=== PATIENT | male | born 1950 | race Caucasian/White ===

== ENCOUNTER 2016-06-11 08:57 | Emergency (ER) | payer OTHER ==
--- NOTE | 2016-06-11 09:25 | UC ---
Respiratory Complaint HPI - HPI Summary HPI Summary: 2 WEEKS OF DIZZINESS, LACK OF APPETITE, FATIGUE, WEAKNESS. HAS ST, DRAINAGE AND CONGESTION. HAS NOT FELT WELL ENOUGH TO LEAVE THE HOUSE UNTIL NOW. FEELS SOB WITH EXERTION. HAS EATEN VERY LITTLE SINCE ONSET. - History of Current Complaint Chief Complaint: UCGeneralIllness Stated Complaint: FEVER,AND CHILLS Time Seen by Provider: 06/11/16 09:07 Hx Obtained From: Patient Onset/Duration: Gradual Onset, Lasting Weeks, Still Present Timing: Constant Severity Initially: Moderate Severity Currently: Moderate Pain Intensity: 0 Pain Scale Used: 0-10 Numeric Character: Cough: Nonproductive Aggravating Factors: Nothing Alleviating Factors: Nothing Associated Signs And Symptoms: Positive: Dyspnea, Dizziness - Allergies/Home Medications Allergies/Adverse Reactions: Allergies Allergy/AdvReac Type Severity Reaction Status Date / Time Bee Venom Allergy Severe Anaphylatic Verified 02/08/15 11:06 Shock Xray dye Allergy Severe Swelling Uncoded 02/08/15 11:06 Home Medications: Home Medications Pseudoephedrine-Guaifenesin [Mucinex D] 1 tab PO 06/11/16 [History] PMH/Surg Hx/FS Hx/Imm Hx Endocrine History Of: Reports: Dyslipidemia Denies: Diabetes, Thyroid Disease Cardiovascular History Of: Reports: Hypertension Denies: Cardiac Disorders Respiratory History Of: Reports: Asthma Denies: COPD GI/ History Of: Denies: Ulcer - Surgical History Surgical History: Yes Surgery Procedure, Year, and Place: 1971 - Right knee surgery. appendectomy - when a child. Lower left ankle, 3 pins - Family History Known Family History: Positive: Cardiac Disease, Hypertension - Social History Alcohol Use: Rare Substance Use Type: None Smoking Status (MU): Former Smoker Type: Cigarettes Have You Smoked in the Last Year: No When Did the Patient Quit Smoking/Using Tobacco: 1969 - Immunization History Most Recent Influenza Vaccination: 02/07/15 Review of Systems Constitutional: Fatigue, Other - DIZZY ENT: Sore Throat, Nasal Discharge Respiratory: Cough Cardiovascular: Other - TACHYCARDIA Gastrointestinal: Negative Neurological: Weakness All Other Systems Reviewed And Are Negative: Yes Physical Exam Triage Information Reviewed: Yes Appearance: Ill-Appearing - PT WORKING TO BREATHE, LOOKS DISTRESSED, PALE Vital Signs: Initial Vital Signs Temp 96.6 F 06/11/16 09:01 Pulse 107 06/11/16 09:01 Resp 22 06/11/16 09:01 BP 94/49 06/11/16 09:01 Pulse Ox 99 06/11/16 09:01 Vital Signs Reviewed: Yes Eyes: Positive: Conjunctiva Clear ENT: Positive: Hearing grossly normal, Pharyngeal erythema, TMs normal Neck: Positive: Supple Respiratory: Positive: Lungs clear, Normal breath sounds, Accessory muscle use Cardiovascular: Positive: Tachycardia Abdomen Description: Positive: Soft Musculoskeletal: Positive: No Edema Neurological: Positive: Alert Psychological: Positive: Age Appropriate Behavior Skin: Negative: rashes UC Diagnostic Evaluation - Laboratory O2 Sat by Pulse Oximetry: 99 Diagnostic Studies Comment: RAPID FLU NEGATIVE - Radiology Xray Interpretation: No Acute Changes - CXR Radiology Interpretation Completed By: Radiologist Respiratory Course/Dx - Course Course Of Treatment: CXR UNREMARKABLE. RAPID FLU NEGATIVE. NS RUNNING. PT HYPOTENSIVE, DIZZY AND WEAK. TO ER BY AMBULANCE. - Differential Dx/Diagnosis Provider Diagnoses: HYPOTENSION, DIZZINESS - Physician Notification/Consults Discussed Patient Care With: VIJI STANTON NP Time Discussed With Above Provider: 10:05 Instructed by Provider To: Transfer - TO [facility] BY AMBULANCE Discharge - Discharge Plan Condition: Fair Disposition: TRANS HIGHER LVL OF CARE FAC Referrals: Tomasz SANCHEZ,Jessica Moreland [Primary Care Provider] -
[2016-06-11] MEDS ORDERED: NS 0.9% 1000 ML* 1,000 ML IV SCH (09:30)
--- NOTE | 2016-06-11 10:06 | RAD ---
Indication: Cough. 2 views of the chest including dual energy PA views demonstrates no mediastinal shift. There is cardiomegaly. Lung pineda demonstrate no pleural fluid, pneumonia or pneumothorax. IMPRESSION: No active cardiopulmonary disease is noted.
[2016-06-11 10:27] VITALS: BP 86/49
== END 2016-06-11 10:24 | disposition short-term general hospital (02) ==
LOC: UCEAST 08:57
DX: I95.9 Hypotension, unspecified (principal); R42 Dizziness and giddiness; R06.09 Other forms of dyspnea; R53.1 Weakness; Z87.891 Personal history of nicotine dependence
CPT/HCPCS: 71020; 87502; 99212; G0463

== ENCOUNTER 2016-06-11 10:46 | Inpatient (IN) | payer OTHER ==
[2016-06-11] MEDS: NS 0.9% 1000 ML* 3,000 ML IV ONE ×3 (11:00→12:21)
[2016-06-11 11:31] LABS: Add Diff/Slide Review? Slide Review Added; Comments Flag Yes; Hematocrit 44 % (42-52); Hemoglobin 15.1 g/dl (14.0-18.0); Mean Corpuscular HGB Conc 34 g/dl (31-36); Mean Corpuscular Hemoglobin 29 pg (27-31); Mean Corpuscular Volume 86 fL (80-94); Mean Platelet Volume 7 um3 (7.4-10.4); Red Blood Count 5.16 10^6/ul (4.0-5.4); Red Cell Distribution Width 15 % (10.5-15); White Blood Count 20.1 10^3/ul (3.5-10.8)
[2016-06-11] MEDS ORDERED: cefTRIAXone(*) 1 GM in NS 0.9% 50 ML* 50 ML IVPB ONE (11:37)
[2016-06-11] MEDS ORDERED: Levofloxacin 750 MG IVPREMIX(* 750 MG/150 ML BAG IVPB ONE (11:37)
[2016-06-11 11:43] LABS: Albumin 3.8 g/dL (3.2-5.2); BUN/Creatinine Ratio 24.2 (8-20); C Reactive Protein 172.23 mg/L (< 5.00); Calcium 9.4 mg/dL (8.6-10.3); EGFR African American 26.6 (>60); EGFR Non-African American 20.7 (>60); Globulin 4.5 g/dL (2-4); Potassium 3.7 mmol/L (3.5-5.0); Total Bilirubin 1.4 mg/dL (0.2-1.0); Total Protein 8.3 g/dL (6.4-8.9)
[2016-06-11 11:47] LABS: Troponin I 0.07 ng/mL (<0.04)
--- NOTE | 2016-06-11 11:50 | RAD ---
Indication: Weakness, pneumonia. Single frontal view of the chest performed at 1115 hours was reviewed. Comparison is made with previous exam dated earlier the same day. No mediastinal shift is noted. Heart is of normal size and configuration. Lung pineda demonstrate no pleural fluid, pneumonia or pneumothorax. IMPRESSION: NO ACTIVE CARDIOPULMONARY DISEASE IS NOTED.
[2016-06-11 12:00] LABS: Eosinophils % 1 % (0-6); Immature Granulocytes 2 % (0-9); Myelocytes % 2 % (0-1); Neutrophil % 75 % (38-83)
[2016-06-11 12:02] LABS: Tear Drop Cells 1+
[2016-06-11] MEDS: NS 0.9% 1000 ML* 1,000 ML IV SCH ×2 (14:45→19:35)
[2016-06-11] MEDS: Heparin VIAL(*) 5000 UNITS/ML VIAL (FIVE THOUSAND) SUBCUT SCH ×2 (15:11→22:05)
--- NOTE | 2016-06-11 15:46 | ED ---
John Sorensen Rebecca, scribed for Guillaume Urias MD on 06/11/16 at 1134 . Shortness of Breath - HPI Summary HPI Summary: Pt is a 66 y/o M BIBA who presents to ED c/o SOB. SOB began gradually 2 weeks ago and has been intermittent since onset. SOB characterized as dyspnea at rest. Sx aggravated and alleviated by nothing. Additionally c/o decreased appetite, dizziness (spinning), productive cough, chills, diaphoresis and generalized weakness. States "I feel like I'm numb" and "I feel like I'm weak." Denies CP, pain in the UE or LE and rash. Denies abd pain and blood in stool. SHx former smoker (quit in the 1970s). Reports that he received a flu shot this year. Is not on a blood thinner. Allergy to contrast dye. - History of Current Complaint Chief Complaint: EDShortnessOfBreath Hx Obtained From: Patient Onset/Duration: Gradual Onset, Lasting Weeks - 2 weeks ago, Still Present Current Severity: Mild Dyspnea At: Rest Aggrevating Factors: Nothing Alleviating Factors: Nothing Associated Signs & Symptoms: Cough (Productive), Wheezing, Chills, Diaphoresis, Dizzy - Allergy/Home Medications Allergies/Adverse Reactions: Allergies Allergy/AdvReac Type Severity Reaction Status Date / Time Bee Venom Allergy Severe Anaphylatic Verified 02/08/15 11:06 Shock Iodinated Diagnostic Agents Allergy See Comment Verified 06/11/16 13:17 Xray dye Allergy Severe Swelling Uncoded 02/08/15 11:06 Home Medications: Home Medications Cyclobenzaprine TAB* [Flexeril TAB*] 10 mg PO BID 06/11/16 [History Confirmed ] Mometasone 220 MCG MDI * [Asmanex 220 MCG MDI *] 1 puff INH DAILY 06/11/16 [ History Confirmed 06/11/16] PMH/Surg Hx/FS Hx/Imm Hx Endocrine/Hematology History: Denies: Hx Diabetes, Hx Thyroid Disease Cardiovascular History: Reports: Hx Hypertension Respiratory History: Reports: Hx Asthma Denies: Hx Chronic Obstructive Pulmonary Disease (COPD) GI History: Denies: Hx Ulcer Musculoskeletal History: Denies: Hx Rheumatoid Arthritis, Hx Osteoporosis - Surgical History Surgery Procedure, Year, and Place: 1971 - Right knee surgery. appendectomy - when a child. Lower left ankle, 3 pins Infectious Disease History: No Infectious Disease History: Denies: Hx Clostridium Difficile, Hx Hepatitis, Hx Human Immunodeficiency Virus (HIV), Hx of Known/Suspected MRSA, Hx Shingles, Hx Tuberculosis, Hx Known/ Suspected VRE, Hx Known/Suspected VRSA, History Other Infectious Disease, Traveled Outside the [place] in Last 30 Days - Family History Known Family History: Positive: Cardiac Disease, Hypertension - Social History Occupation: Retired Lives: Alone Alcohol Use: Rare Substance Use Type: Reports: None Smoking Status (MU): Former Smoker Type: Cigarettes Have You Smoked in the Last Year: No Review of Systems Positive: Chills, Skin Diaphoresis, Other - Generalized weakness Negative: Chest Pain Positive: Shortness Of Breath - dyspnea at rest, Cough - productive Negative: Abdominal Pain Positive: other - Denies blood in stool Negative: Arthralgia - Denies pain in the UE or LE Negative: Rash All Other Systems Reviewed And Are Negative: Yes Physical Exam - Summary Physical Exam Summary: The patient is well-nourished in no acute distress and in no acute pain. The skin is warm and dry and skin color reflects adequate perfusion. Decreased skin turgor. HEENT: The head is normocephalic and atraumatic. The pupils are equal and reactive. The conjunctivae are clear and without drainage. Nares are patent and without drainage. Mouth reveals dry mucous membranes and the throat is without exudates. Post-pharynx is extremely erythematous. Tongue has white spots. The external ears are intact. The ear canals are patent and without drainage. The tympanic membranes are intact. Neck is supple with full range of motion and non-tender. There are no carotid bruits. There is no neck vein distension. Respiratory: Chest is non-tender. Breath sounds are symmetrical and equal. Crackles in the bases. Cardiovascular: Heart is regular rhythm and tachycardic. There is no murmur or rub auscultated. There is no peripheral edema and pulses are symmetrical and equal. Abdomen: The abdomen is soft and non-tender. There are normal bowel sounds heard in all four quadrants and there is no organomegaly palpated. Musculoskeletal: There is no back pain noted. Extremities are non-tender with full range of motion. 3 second capillary refill. There is no peripheral edema or calf tenderness elicited. Neurological: Patient is alert and oriented to person, place and time. The patient has symmetrical motor strength in all four extremities. Cranial nerves are grossly intact. Deep tendon reflexes are symmetrical and equal in all four extremities. Psychiatric: The patient has an appropriate affect and does not exhibit any anxiety or depression. Triage Information Reviewed: Yes Vital Signs On Initial Exam: Initial Vitals Temp Pulse Resp BP Pulse Ox 98.1 F 89 18 81/66 97 06/11/16 10:54 06/11/16 10:54 06/11/16 10:54 06/11/16 10:54 06/11/16 10:54 Vital Signs Reviewed: Yes Diagnostics - Vital Signs Vital Signs Temp Pulse Resp BP Pulse Ox 06/11/16 11:18 95 06/11/16 10:54 98.1 F 89 18 81/66 97 - Laboratory Lab Results: Lab Results 06/11/16 06/11/16 06/11/16 Range/Units 11:10 11:10 11:10 WBC 20.1 H (3.5-10.8) 10^3/ul RBC 5.16 (4.0-5.4) 10^6/ul Hgb 15.1 (14.0-18.0) g/dl Hct 44 (42-52) % MCV 86 (80-94) fL MCH 29 (27-31) pg MCHC 34 (31-36) g/dl RDW 15 (10.5-15) % Plt Count 498 H (150-450) 10^3/ul MPV 7 L (7.4-10.4) um3 Immature Gran % (Auto) 2 (0-9) % Neut % (Auto) 82.2 (38-83) % Lymph % (Auto) 7.6 L (25-47) % Forrest % (Auto) 8.8 (1-9) % Eos % (Auto) 0.4 (0-6) % Baso % (Auto) 1.0 (0-2) % Absolute Neuts (auto) 16.5 H (1.5-7.7) 10^3/ul Absolute Lymphs (auto) 1.5 (1.0-4.8) 10^3/ul Absolute Monos (auto) 1.8 H (0-0.8) 10^3/ul Absolute Eos (auto) 0.1 (0-0.6) 10^3/ul Absolute Basos (auto) 0.2 (0-0.2) 10^3/ul Absolute Nucleated RBC 0 10^3/ul Neutrophils % 75 (38-83) % Lymphocytes % 8 L (25-47) % Monocytes % 13 (0-13) % Eosinophils % 1 (0-6) % Basophils % 1 (0-2) % Myelocytes % 2 H (0-1) % Nucleated RBC % 0 Normal RBC Morphology Not Reportable Tear Drop Cells 1+ INR (Anticoag Therapy) 1.21 H (0.89-1.11) APTT 32.5 (26.0-36.3) seconds Sodium 132 L (133-145) mmol/L Potassium 3.7 (3.5-5.0) mmol/L Chloride 98 L (101-111) mmol/L Carbon Dioxide 18 L (22-32) mmol/L Anion Gap 16 H (2-11) mmol/L BUN 74 H (6-24) mg/dL Creatinine 3.06 H (0.67-1.17) mg/dL Est GFR ( Amer) 26.6 (>60) Est GFR (Non-Af Amer) 20.7 (>60) BUN/Creatinine Ratio 24.2 H (8-20) Glucose 100 (70-100) mg/dL Lactic Acid (0.5-2.0) mmol/L Calcium 9.4 (8.6-10.3) mg/dL Total Bilirubin 1.40 H (0.2-1.0) mg/dL AST 40 H (13-39) U/L ALT 60 H (7-52) U/L Alkaline Phosphatase 175 H (34-104) U/L Total Creatine Kinase 80 (10-223) U/L Troponin I 0.07 H* (<0.04) ng/mL C-Reactive Protein 172.23 H (< 5.00) mg/L B-Natriuretic Peptide ( - 100) pg/mL Total Protein 8.3 (6.4-8.9) g/dL Albumin 3.8 (3.2-5.2) g/dL Globulin 4.5 H (2-4) g/dL Albumin/Globulin Ratio 0.8 L (1-3) Procalcitonin (<0.6) ng/mL Influenza A (Rapid) (Negative) Influenza B (Rapid) (Negative) Group A Strep Rapid (Negative) 06/11/16 06/11/16 06/11/16 Range/Units 11:10 11:10 11:10 WBC (3.5-10.8) 10^3/ul RBC (4.0-5.4) 10^6/ul Hgb (14.0-18.0) g/dl Hct (42-52) % MCV (80-94) fL MCH (27-31) pg MCHC (31-36) g/dl RDW (10.5-15) % Plt Count (150-450) 10^3/ul MPV (7.4-10.4) um3 Immature Gran % (Auto) (0-9) % Neut % (Auto) (38-83) % Lymph % (Auto) (25-47) % Forrest % (Auto) (1-9) % Eos % (Auto) (0-6) % Baso % (Auto) (0-2) % Absolute Neuts (auto) (1.5-7.7) 10^3/ul Absolute Lymphs (auto) (1.0-4.8) 10^3/ul Absolute Monos (auto) (0-0.8) 10^3/ul Absolute Eos (auto) (0-0.6) 10^3/ul Absolute Basos (auto) (0-0.2) 10^3/ul Absolute Nucleated RBC 10^3/ul Neutrophils % (38-83) % Lymphocytes % (25-47) % Monocytes % (0-13) % Eosinophils % (0-6) % Basophils % (0-2) % Myelocytes % (0-1) % Nucleated RBC % Normal RBC Morphology Tear Drop Cells INR (Anticoag Therapy) (0.89-1.11) APTT (26.0-36.3) seconds Sodium (133-145) mmol/L Potassium (3.5-5.0) mmol/L Chloride (101-111) mmol/L Carbon Dioxide (22-32) mmol/L Anion Gap (2-11) mmol/L BUN (6-24) mg/dL Creatinine (0.67-1.17) mg/dL Est GFR ( Amer) (>60) Est GFR (Non-Af Amer) (>60) BUN/Creatinine Ratio (8-20) Glucose (70-100) mg/dL Lactic Acid 2.2 H* (0.5-2.0) mmol/L Calcium (8.6-10.3) mg/dL Total Bilirubin (0.2-1.0) mg/dL AST (13-39) U/L ALT (7-52) U/L Alkaline Phosphatase (34-104) U/L Total Creatine Kinase (10-223) U/L Troponin I (<0.04) ng/mL C-Reactive Protein (< 5.00) mg/L B-Natriuretic Peptide 65 ( - 100) pg/mL Total Protein (6.4-8.9) g/dL Albumin (3.2-5.2) g/dL Globulin (2-4) g/dL Albumin/Globulin Ratio (1-3) Procalcitonin 1.5 H (<0.6) ng/mL Influenza A (Rapid) (Negative) Influenza B (Rapid) (Negative) Group A Strep Rapid (Negative) 06/11/16 06/11/16 Range/Units 11:37 11:41 WBC (3.5-10.8) 10^3/ul RBC (4.0-5.4) 10^6/ul Hgb (14.0-18.0) g/dl Hct (42-52) % MCV (80-94) fL MCH (27-31) pg MCHC (31-36) g/dl RDW (10.5-15) % Plt Count (150-450) 10^3/ul MPV (7.4-10.4) um3 Immature Gran % (Auto) (0-9) % Neut % (Auto) (38-83) % Lymph % (Auto) (25-47) % Forrest % (Auto) (1-9) % Eos % (Auto) (0-6) % Baso % (Auto) (0-2) % Absolute Neuts (auto) (1.5-7.7) 10^3/ul Absolute Lymphs (auto) (1.0-4.8) 10^3/ul Absolute Monos (auto) (0-0.8) 10^3/ul Absolute Eos (auto) (0-0.6) 10^3/ul Absolute Basos (auto) (0-0.2) 10^3/ul Absolute Nucleated RBC 10^3/ul Neutrophils % (38-83) % Lymphocytes % (25-47) % Monocytes % (0-13) % Eosinophils % (0-6) % Basophils % (0-2) % Myelocytes % (0-1) % Nucleated RBC % Normal RBC Morphology Tear Drop Cells INR (Anticoag Therapy) (0.89-1.11) APTT (26.0-36.3) seconds Sodium (133-145) mmol/L Potassium (3.5-5.0) mmol/L Chloride (101-111) mmol/L Carbon Dioxide (22-32) mmol/L Anion Gap (2-11) mmol/L BUN (6-24) mg/dL Creatinine (0.67-1.17) mg/dL Est GFR ( Amer) (>60) Est GFR (Non-Af Amer) (>60) BUN/Creatinine Ratio (8-20) Glucose (70-100) mg/dL Lactic Acid (0.5-2.0) mmol/L Calcium (8.6-10.3) mg/dL Total Bilirubin (0.2-1.0) mg/dL AST (13-39) U/L ALT (7-52) U/L Alkaline Phosphatase (34-104) U/L Total Creatine Kinase (10-223) U/L Troponin I (<0.04) ng/mL C-Reactive Protein (< 5.00) mg/L B-Natriuretic Peptide ( - 100) pg/mL Total Protein (6.4-8.9) g/dL Albumin (3.2-5.2) g/dL Globulin (2-4) g/dL Albumin/Globulin Ratio (1-3) Procalcitonin (<0.6) ng/mL Influenza A (Rapid) Negative (Negative) Influenza B (Rapid) Negative (Negative) Group A Strep Rapid Negative (Negative) Result Diagrams: 06/11/16 11:10 06/11/16 11:10 Lab Statement: Any lab studies that have been ordered have been reviewed, and results considered in the medical decision making process. - Radiology CXR Radiology Interpretation Completed By: Radiologist - NO ACTIVE CARDIOPULMONARY DISEASE IS NOTED. - EKG 1049 Cardiac Rate: NL - 93 bpm EKG Rhythm: Sinus Rhythm - Normal axis ST Segment: Non-Specific - Non-specific ST changes in the inferior lateral leads EKG Interpretation: No STEMI Course/Dx - Course Assessment/Plan: Pt is a 66 y/o M BIBA who presents to ED with a CC of SOB for 2 weeks. Additionally c/o decreased appetite, dizziness (spinning), productive cough, chills, diaphoresis and generalized weakness. Denies CP, pain in the UE or LE, rash, abd pain, blood in stool. CXR reveals negative results. EKG reveals nonspecific ST changes in the inferior lateral leads and no STEMI. Discussed care of pt with Dr. Garcia who accepts pt for admission. Pt will be admitted to hospitalist services. - Diagnoses Differential Diagnosis/HQI/PQRI: Positive: Bronchitis, CHF, AR, Pneumonia, Other - sepsis, influenza, renal failure, dehydration Provider Diagnoses: Severe sepsis, Renal failure, acute, Elevated troponin - Physician Notifications Discussed Care of Patient With: Dr. Garcia, hospitalist, who agrees to accept pt for admission. Time Discussed With Above Provider: 12:15 - Critical Care Time Critical Care Time: 30-74 min - 30 minutes of critical care time Discharge - Discharge Plan Condition: Good Disposition: ADMITT[facility] TO [facility] The documentation as recorded by the John shrestha Rebecca accurately reflects the service I personally performed and the decisions made by Bridgett thorne Drew, MD.
[2016-06-11] MEDS: Acetaminophen TAB* 325 MG PO PRN (16:25)
--- NOTE | 2016-06-11 19:15 | HP ---
HISTORY AND PHYSICAL: DATE OF ADMISSION: 06/11/16 PRIMARY CARE PROVIDER: Jessica Tolbert at the [facility]. CHIEF COMPLAINT: Sore throat and dizziness. HISTORY OF PRESENT ILLNESS: Mr. Cottrell is a 66-year-old male who is not the best historian, but states that he began to get ill approximately 2 weeks ago. He states that it started out with chills and sweats. He then developed no appetite. He then proceeded to develop a sore throat, which has been present for approximately 1 week. He also notes that he feels thick sputum almost suffocating him in his throat. He does feel that from time to time he has to cough this up, but he does not believe it is coming up from his lungs. The patient states that he has not really had any significant vomiting or nausea. He has not had no diarrhea. He states that his appetite has been completely absent over the last 2 weeks and he has only been drinking water and milk. The patient states his last BM was approximately 2 weeks ago, stating that he has nothing to pass. He also notes that his urination has gone down. PAST MEDICAL HISTORY: 1. Hypertension. 2. Back pain. 3. Asthma. 4. Hyperlipidemia. PAST SURGICAL HISTORY: 1. Appendectomy. 2. Left ankle surgery. 3. Right knee surgery. MEDICATIONS: 1. Asmanex 1 puff inhaled daily. 2. Flexeril 10 mg p.o. b.i.d. 3. Flonase 1 squirt to each nostril twice daily. 4. Albuterol 2 puffs inhaled q.4 hours p.r.n. shortness of breath. 5. Crestor 10 mg p.o. daily. 6. Claritin 10 mg p.o. daily p.r.n. allergies. 7. Prilosec 20 mg p.o. daily. 8. Naproxen 500 mg p.o. b.i.d. 9. Lisinopril 20 mg p.o. daily. 10. Hydrochlorothiazide 25 mg p.o. daily. ALLERGIES: BEE VENOM, IODINATED DIAGNOSTIC AGENTS. FAMILY HISTORY: Mom at the age of 89. She had CVA and some sort of gynecologic cancer. Dad around age 85 secondary to heart disease. The patient had one brother who had a CVA. SOCIAL HISTORY: The patient has been a lifelong nonsmoker. Does not drink alcohol. No illicit drugs. He is disabled from the service. He is . He has 1 child. His son, Heriberto Cottrell Jr., phone number [phone], is his healthcare proxy. REVIEW OF SYSTEMS: The patient admits to chills and anorexia as above. No chest pain. No edema. No cough. No shortness of breath. He complains of sore throat and thick mucus in his throat. No nausea, vomiting, abdominal pain , constipation or diarrhea. He states; however, that he has not had a bowel movement in approximately 2 weeks. No hematochezia. Prior to that, no hematuria. He notes that his frequency of urination has gone down. No focal weakness or sensory loss. Just generalized weakness. No sudden changes in vision. He admits to mild dysphagia. No joint pains or muscle pains out of the ordinary. No rashes. No anxiety or depression. PHYSICAL EXAMINATION GENERAL: The patient is a well-developed, middle-aged male sitting in the stretcher appearing to be in no acute distress. VITAL SIGNS: Temperature 97.6, O2 sat 100% on room air, BP 99/66, pulse 94, respirations 16. HEENT: Pupils are equal. They are round. They react to light. Extraocular muscles intact. Oropharynx is clear. The patient's posterior pharynx is beefy red. There is some white adherent-appearing slough on the tongue. NECK: There is no submandibular, cervical, or supraclavicular adenopathy. Thyroid is not enlarged. No thyroid nodules are noted. PULMONARY: Lungs are clear to auscultation bilaterally. CARDIAC: Normal S1, S2. Regular rate and rhythm. There is a 2/6 systolic murmur heard best at the right upper sternal border. ABDOMEN: Bowel sounds are present. Abdomen is soft, nontender, nondistended. MUSCULOSKELETAL: There is no cyanosis or clubbing of the digits. There is full active range of motion of all 4 extremities. SKIN: Warm and dry. There are no rashes. There is what appears to be some chronic patchy erythema to the forehead. The patient states that he had shingles there previously. NEUROLOGIC: Cranial nerves II through XII are grossly intact. Sensation is intact to light touch throughout. Strength is 5/5 and symmetric in both upper and lower extremities bilaterally. PSYCH: The patient is alert. He is oriented x3. Affect appears appropriate. LABORATORY DATA: WBC 20.1, hemoglobin 15.1, hematocrit 44, platelets 498. Neutrophils 82.2%. INR 1.21. Sodium 132, potassium 3.7, chloride 98, CO2 of 18, BUN 74, creatinine 3.06, glucose 100, lactic acid 2.2, calcium 9.4. Bilirubin 1.4, AST 48, ALT 60, alk phos 175. CPK 80. Troponin 0.07. CRP 172.23. Albumin 3.8. Procalcitonin 1.5. BNP 65. Influenza A and B negative. Group A strep negative. Chest x-ray: No active cardiopulmonary disease. EKG reveals normal sinus rhythm without any acute ST-T wave abnormalities. ASSESSMENT AND PLAN: Mr. Cottrell is a 66-year-old male with a history of hypertension, hyperlipidemia, and asthma who presents to the emergency room with complaints of sore throat and dizziness and found to be possibly septic, though from unclear etiology. 1. Sepsis secondary to unclear etiology: The patient appears to be septic with decreased blood pressure and elevated bilirubin as well as elevated creatinine. The etiology of the sepsis is unknown. He does have a sore throat; however, his group A strep is negative. Blood cultures have been sent. Fluid is also negative. At this point, we will aggressively hydrate the patient and continue him on Levaquin renally dosed. He also received ceftriaxone in the emergency room but I will hold off on this antibiotic at this time. 2. Hypotension: I suspect this is related to sepsis but there is also likely a large component from dehydration as the patient has not been eating and drinking like normal. The patient will be aggressively hydrated and his blood pressure will be monitored closely. I am going to hold his hydrochlorothiazide and lisinopril. 3. Acute renal failure: I suspect this is likely partially prerenal in nature ; however, it sounds as if the patient has been ill for a prolonged period of time. We will obtain a urinalysis to evaluate for granular casts, which could be sign of acute tubular necrosis. Followup creatinine will be obtained tomorrow morning. A FENa will also be obtained. 4. Hypertension: Again, at this time the patient is hypotensive. I will hold his usual antihypertensives. 5. Hyperlipidemia: We will continue the patient on statin that is auto substituted for Crestor. 6. Elevation of the LFTs is not completely clear, though I have a suspicion for shock liver. We will get followup levels in the next 1 to 2 days. If no improvement, we will need to consider a liver ultrasound. 7. DVT prophylaxis: According to the Adult Thrombosis Prophylaxis Risk Factor Assessment Guide, the patient has a total risk factor score of 3 making him high risk. He will be placed on heparin 5000 units subcutaneous q.8 hours. 8. Code status is full. TIME SPENT: Sixty-five minutes was spent admitting this patient. CC: Jessica Tolbert at the [facility] * [id number]/CPS #: [id number]
[2016-06-11] MEDS: Cyclobenzaprine TAB* 10 MG PO SCH (20:35)
[2016-06-11 21:32] LABS: Urine Bacteria 1+ (Absent); Urine Bilirubin Negative (Negative); Urine Glucose Negative (Negative); Urine Nitrite Positive (Negative)
[2016-06-11] MEDS: Benzocaine/Menthol LOZ* 1 LOZENGE PO PRN (22:05)
[2016-06-12] MEDS: NS 0.9% 1000 ML* 1,000 ML IV SCH ×3 (03:32→20:42)
[2016-06-12 05:24] LABS: Hematocrit 37 % (42-52); Hemoglobin 12.4 g/dl (14.0-18.0); Mean Corpuscular HGB Conc 33 g/dl (31-36); Mean Corpuscular Hemoglobin 29 pg (27-31); Mean Corpuscular Volume 87 fL (80-94); Mean Platelet Volume 7 um3 (7.4-10.4); Red Blood Count 4.27 10^6/ul (4.0-5.4); Red Cell Distribution Width 15 % (10.5-15)
[2016-06-12 05:30] LABS: Comments Flag Yes
[2016-06-12 05:35] LABS: BUN/Creatinine Ratio 25.2 (8-20); Calcium 8.3 mg/dL (8.6-10.3); EGFR African American 38.5 (>60); Potassium 3.8 mmol/L (3.5-5.0)
[2016-06-12] MEDS: Heparin VIAL(*) 5000 UNITS/ML VIAL (FIVE THOUSAND) SUBCUT SCH ×3 (06:24→21:15)
[2016-06-12] MEDS: Benzocaine/Menthol LOZ* 1 LOZENGE PO PRN (07:10)
[2016-06-12] MEDS: Atorvastatin* 20 MG TAB PO SCH (09:30)
[2016-06-12] MEDS: Acetaminophen TAB* 325 MG PO PRN (09:30)
[2016-06-12] MEDS: Cyclobenzaprine TAB* 10 MG PO SCH ×2 (09:31→20:42)
[2016-06-12] MEDS: Omeprazole CAP* 20 MG PO SCH (09:32)
--- NOTE | 2016-06-12 12:44 | PN ---
Subjective Date of Service: 06/12/16 Interval History: Pt is feeling much better today than yesterday. He states his throat is still sore though not nearly as bad. He notes that he is having difficulty with urination where he feels like he needs to push out the urine. Objective Active Medications: Acetaminophen (Tylenol Tab*) 650 mg PO Q4H PRN PRN Reason: PAIN Last Admin: 06/12/16 09:30 Dose: 650 mg Albuterol (Ventolin Hfa Inhaler*) 2 puff INH Q4H PRN PRN Reason: SOB/WHEEZING Atorvastatin Calcium (Lipitor*) 10 mg PO DAILY [facility] PRN Reason: Protocol Last Admin: 06/12/16 09:30 Dose: 10 mg Cyclobenzaprine HCl (Flexeril Tab*) 10 mg PO BID [facility] Last Admin: 06/12/16 09:31 Dose: 10 mg Heparin Sodium (Porcine) (Heparin Vial(*)) 5,000 units SUBCUT Q8HR [facility] Last Admin: 06/12/16 06:24 Dose: 5,000 units Sodium Chloride (Ns 0.9% 1000 Ml*) 1,000 mls @ 125 mls/hr IV PER RATE [facility] Last Admin: 06/12/16 03:32 Dose: 125 mls/hr Omeprazole (Prilosec Cap*) 20 mg PO DAILY [facility] Last Admin: 06/12/16 09:32 Dose: 20 mg Throat Lozenges (Chloraseptic Julita*) 1 julita PO Q6H PRN PRN Reason: SORE THROAT Last Admin: 06/12/16 07:10 Dose: 1 julita Vital Signs 06/11/16 06/11/16 06/11/16 13:00 13:30 14:52 Temperature 97.6 F Pulse Rate 87 88 94 Respiratory 16 16 16 Rate Blood Pressure 95/64 98/64 99/66 (mmHg) O2 Sat by Pulse 99 97 100 Oximetry 06/11/16 06/11/16 06/11/16 15:54 16:39 17:47 Temperature 97.9 F Pulse Rate 92 Respiratory 18 16 18 Rate Blood Pressure 97/56 (mmHg) O2 Sat by Pulse 100 Oximetry 06/11/16 06/11/16 06/11/16 19:52 20:00 20:35 Temperature 98.0 F Pulse Rate 83 Respiratory 16 16 16 Rate Blood Pressure 91/60 (mmHg) O2 Sat by Pulse 100 99 Oximetry 06/11/16 06/12/16 06/12/16 22:35 00:14 04:53 Temperature 97.5 F 97.9 F Pulse Rate 84 77 Respiratory 16 16 16 Rate Blood Pressure 103/65 105/62 (mmHg) O2 Sat by Pulse 99 100 Oximetry 06/12/16 06/12/16 06/12/16 07:17 09:26 09:31 Temperature 98.2 F Pulse Rate 79 Respiratory 16 13 Rate Blood Pressure 96/61 (mmHg) O2 Sat by Pulse 99 94 Oximetry 06/12/16 06/12/16 11:31 12:08 Temperature 97.8 F Pulse Rate 78 Respiratory 18 18 Rate Blood Pressure 105/64 (mmHg) O2 Sat by Pulse 100 Oximetry Oxygen Devices in Use Now: None Appearance: Middle aged male sitting up in bed, NAD Eyes: No Scleral Icterus Ears/Nose/Mouth/Throat: Mucous Membranes Moist Respiratory: Symmetrical Chest Expansion and Respiratory Effort, Clear to Auscultation Cardiovascular: NL Sounds; No Murmurs; No JVD, RRR, No Edema Abdominal: NL Sounds; No Tenderness; No Distention Extremities: No Clubbing, Cyanosis Skin: No Rash or Ulcers, No Nodules or Sclerosis Neurological: Alert and Oriented x 3 Result Diagrams: 06/12/16 05:01 06/12/16 05:01 Additional Lab and Data: Lab Results 06/11/16 06/11/16 06/11/16 Range/Units 11:10 11:10 11:10 WBC 20.1 H (3.5-10.8) 10^3/ul RBC 5.16 (4.0-5.4) 10^6/ul Hgb 15.1 (14.0-18.0) g/dl Hct 44 (42-52) % MCV 86 (80-94) fL MCH 29 (27-31) pg MCHC 34 (31-36) g/dl RDW 15 (10.5-15) % Plt Count 498 H (150-450) 10^3/ul MPV 7 L (7.4-10.4) um3 Immature Gran % (Auto) 2 (0-9) % Neut % (Auto) 82.2 (38-83) % Lymph % (Auto) 7.6 L (25-47) % [place] % (Auto) 8.8 (1-9) % Eos % (Auto) 0.4 (0-6) % Baso % (Auto) 1.0 (0-2) % Absolute Neuts (auto) 16.5 H (1.5-7.7) 10^3/ul Absolute Lymphs (auto) 1.5 (1.0-4.8) 10^3/ul Absolute Monos (auto) 1.8 H (0-0.8) 10^3/ul Absolute Eos (auto) 0.1 (0-0.6) 10^3/ul Absolute Basos (auto) 0.2 (0-0.2) 10^3/ul Absolute Nucleated RBC 0 10^3/ul Neutrophils % 75 (38-83) % Lymphocytes % 8 L (25-47) % Monocytes % 13 (0-13) % Eosinophils % 1 (0-6) % Basophils % 1 (0-2) % Myelocytes % 2 H (0-1) % Nucleated RBC % 0 Normal RBC Morphology Not Reportable Tear Drop Cells 1+ INR (Anticoag Therapy) 1.21 H (0.89-1.11) APTT 32.5 (26.0-36.3) seconds Sodium 132 L (133-145) mmol/L Potassium 3.7 (3.5-5.0) mmol/L Chloride 98 L (101-111) mmol/L Carbon Dioxide 18 L (22-32) mmol/L Anion Gap 16 H (2-11) mmol/L BUN 74 H (6-24) mg/dL Creatinine 3.06 H (0.67-1.17) mg/dL Est GFR ( Amer) 26.6 (>60) Est GFR (Non-Af Amer) 20.7 (>60) BUN/Creatinine Ratio 24.2 H (8-20) Glucose 100 (70-100) mg/dL Lactic Acid (0.5-2.0) mmol/L Calcium 9.4 (8.6-10.3) mg/dL Total Bilirubin 1.40 H (0.2-1.0) mg/dL AST 40 H (13-39) U/L ALT 60 H (7-52) U/L Alkaline Phosphatase 175 H (34-104) U/L Total Creatine Kinase 80 (10-223) U/L Troponin I 0.07 H* (<0.04) ng/mL C-Reactive Protein 172.23 H (< 5.00) mg/L B-Natriuretic Peptide ( - 100) pg/mL Total Protein 8.3 (6.4-8.9) g/dL Albumin 3.8 (3.2-5.2) g/dL Globulin 4.5 H (2-4) g/dL Albumin/Globulin Ratio 0.8 L (1-3) Procalcitonin (<0.6) ng/mL Influenza A (Rapid) (Negative) Influenza B (Rapid) (Negative) Group A Strep Rapid (Negative) 06/11/16 06/11/16 06/11/16 Range/Units 11:10 11:10 11:10 WBC (3.5-10.8) 10^3/ul RBC (4.0-5.4) 10^6/ul Hgb (14.0-18.0) g/dl Hct (42-52) % MCV (80-94) fL MCH (27-31) pg MCHC (31-36) g/dl RDW (10.5-15) % Plt Count (150-450) 10^3/ul MPV (7.4-10.4) um3 Immature Gran % (Auto) (0-9) % Neut % (Auto) (38-83) % Lymph % (Auto) (25-47) % [place] % (Auto) (1-9) % Eos % (Auto) (0-6) % Baso % (Auto) (0-2) % Absolute Neuts (auto) (1.5-7.7) 10^3/ul Absolute Lymphs (auto) (1.0-4.8) 10^3/ul Absolute Monos (auto) (0-0.8) 10^3/ul Absolute Eos (auto) (0-0.6) 10^3/ul Absolute Basos (auto) (0-0.2) 10^3/ul Absolute Nucleated RBC 10^3/ul Neutrophils % (38-83) % Lymphocytes % (25-47) % Monocytes % (0-13) % Eosinophils % (0-6) % Basophils % (0-2) % Myelocytes % (0-1) % Nucleated RBC % Normal RBC Morphology Tear Drop Cells INR (Anticoag Therapy) (0.89-1.11) APTT (26.0-36.3) seconds Sodium (133-145) mmol/L Potassium (3.5-5.0) mmol/L Chloride (101-111) mmol/L Carbon Dioxide (22-32) mmol/L Anion Gap (2-11) mmol/L BUN (6-24) mg/dL Creatinine (0.67-1.17) mg/dL Est GFR ( Amer) (>60) Est GFR (Non-Af Amer) (>60) BUN/Creatinine Ratio (8-20) Glucose (70-100) mg/dL Lactic Acid 2.2 H* (0.5-2.0) mmol/L Calcium (8.6-10.3) mg/dL Total Bilirubin (0.2-1.0) mg/dL AST (13-39) U/L ALT (7-52) U/L Alkaline Phosphatase (34-104) U/L Total Creatine Kinase (10-223) U/L Troponin I (<0.04) ng/mL C-Reactive Protein (< 5.00) mg/L B-Natriuretic Peptide 65 ( - 100) pg/mL Total Protein (6.4-8.9) g/dL Albumin (3.2-5.2) g/dL Globulin (2-4) g/dL Albumin/Globulin Ratio (1-3) Procalcitonin 1.5 H (<0.6) ng/mL Influenza A (Rapid) (Negative) Influenza B (Rapid) (Negative) Group A Strep Rapid (Negative) 06/11/16 06/11/16 Range/Units 11:37 11:41 WBC (3.5-10.8) 10^3/ul RBC (4.0-5.4) 10^6/ul Hgb (14.0-18.0) g/dl Hct (42-52) % MCV (80-94) fL MCH (27-31) pg MCHC (31-36) g/dl RDW (10.5-15) % Plt Count (150-450) 10^3/ul MPV (7.4-10.4) um3 Immature Gran % (Auto) (0-9) % Neut % (Auto) (38-83) % Lymph % (Auto) (25-47) % [place] % (Auto) (1-9) % Eos % (Auto) (0-6) % Baso % (Auto) (0-2) % Absolute Neuts (auto) (1.5-7.7) 10^3/ul Absolute Lymphs (auto) (1.0-4.8) 10^3/ul Absolute Monos (auto) (0-0.8) 10^3/ul Absolute Eos (auto) (0-0.6) 10^3/ul Absolute Basos (auto) (0-0.2) 10^3/ul Absolute Nucleated RBC 10^3/ul Neutrophils % (38-83) % Lymphocytes % (25-47) % Monocytes % (0-13) % Eosinophils % (0-6) % Basophils % (0-2) % Myelocytes % (0-1) % Nucleated RBC % Normal RBC Morphology Tear Drop Cells INR (Anticoag Therapy) (0.89-1.11) APTT (26.0-36.3) seconds Sodium (133-145) mmol/L Potassium (3.5-5.0) mmol/L Chloride (101-111) mmol/L Carbon Dioxide (22-32) mmol/L Anion Gap (2-11) mmol/L BUN (6-24) mg/dL Creatinine (0.67-1.17) mg/dL Est GFR ( Amer) (>60) Est GFR (Non-Af Amer) (>60) BUN/Creatinine Ratio (8-20) Glucose (70-100) mg/dL Lactic Acid (0.5-2.0) mmol/L Calcium (8.6-10.3) mg/dL Total Bilirubin (0.2-1.0) mg/dL AST (13-39) U/L ALT (7-52) U/L Alkaline Phosphatase (34-104) U/L Total Creatine Kinase (10-223) U/L Troponin I (<0.04) ng/mL C-Reactive Protein (< 5.00) mg/L B-Natriuretic Peptide ( - 100) pg/mL Total Protein (6.4-8.9) g/dL Albumin (3.2-5.2) g/dL Globulin (2-4) g/dL Albumin/Globulin Ratio (1-3) Procalcitonin (<0.6) ng/mL Influenza A (Rapid) Negative (Negative) Influenza B (Rapid) Negative (Negative) Group A Strep Rapid Negative (Negative) Assess/Plan/Problems-Billing Mr Cottrell is a 66 yo M who has a h/o HTN, HLD and asthma who presented to the ER with c/o sore throat and dizziness and was found to be hypotensive and septic secondary to unclear cause. - Patient Problems (1) Sepsis Current Visit: Yes Status: Acute Comment: On admission the patient had a SOFA score of 4. His sepsis has resolved though he remains with mild hypotension. Continue IVF hydration. At this time it appears his sepsis is secondary to a UTI. (2) UTI (urinary tract infection) Current Visit: Yes Status: Acute Comment: The patient's urinalysis is markedly abnormal. I suspect a UTI is the cause of his sepsis. Will continue levaquin though renally dosed (no dose today based on kidney function). Await culture. (3) Acute renal failure Current Visit: Yes Status: Acute Comment: The patient's ARF is likely secondary to a prolonged pre-renal state. His FeNa calculates out to 2.9 indicating an intra-renal cause such as ATN. Will continue to hydrate the patient and recheck the creatinine tomorrow. (4) Elevated LFTs Current Visit: Yes Status: Acute Code(s): R94.5 - ABNORMAL RESULTS OF LIVER FUNCTION STUDIES SNOMED Code(s): 677866204 Comment: I suspect secondary to shock liver secondary to hypotension. Follow up levels tomorrow and if no better will get liver US. (5) Sore throat Current Visit: Yes Status: Acute Code(s): J02.9 - ACUTE PHARYNGITIS, UNSPECIFIED SNOMED Code(s): 117547619 Comment: I am suspicious this may be secondary to a viral illness or post nasal drip. The patient has been complaining of thick mucous in his throat that has been dripping from above. If he has a bacterial sinusitis, levaquin should cover this. Continue supportive care. (6) Elevated troponin Current Visit: Yes Status: Acute Code(s): R79.89 - OTHER SPECIFIED ABNORMAL FINDINGS OF BLOOD CHEMISTRY SNOMED Code(s): 315108755 Comment: Likely demand ischemia. Second troponin was negative. No further work up at this time. (7) HTN (hypertension) Current Visit: Yes Status: Acute Code(s): I10 - ESSENTIAL (PRIMARY) HYPERTENSION SNOMED Code(s): 06347483 Comment: Pt was markedly hypotensive on presentation. BP is improved but still not normal. Continue to hold home antihypertensives. (8) HLD (hyperlipidemia) Current Visit: Yes Status: Acute Code(s): E78.5 - HYPERLIPIDEMIA, UNSPECIFIED SNOMED Code(s): 54693752 Comment: Continue lipitor. (9) DVT prophylaxis Current Visit: Yes Status: Acute Code(s): VOC6033 - SNOMED Code(s): 595527079 (10) Full code status Current Visit: Yes Status: Acute Code(s): Z78.9 - OTHER SPECIFIED HEALTH STATUS SNOMED Code(s): 667118035
[2016-06-12] MEDS: Albuterol HFA INHALER* 8 gm MDI INH PRN ×2 (13:33→21:25)
[2016-06-13] MEDS: NS 0.9% 1000 ML* 1,000 ML IV SCH (06:11)
[2016-06-13] MEDS: Heparin VIAL(*) 5000 UNITS/ML VIAL (FIVE THOUSAND) SUBCUT SCH (06:12)
[2016-06-13] MEDS: Atorvastatin* 20 MG TAB PO SCH (09:18)
[2016-06-13] MEDS: Cyclobenzaprine TAB* 10 MG PO SCH (09:19)
[2016-06-13] MEDS: Omeprazole CAP* 20 MG PO SCH (09:19)
[2016-06-13] MEDS: Albuterol HFA INHALER* 8 gm MDI INH PRN (09:20)
[2016-06-13 11:30] VITALS: BP 129/68
[2016-06-13] MEDS ORDERED: Levofloxacin 500 MG IVPREMIX(* 500 MG/100 ML BAG IVPB ONE (12:27)
--- NOTE | 2016-06-13 12:38 | PN ---
Subjective Date of Service: 06/13/16 Interval History: Pt is feeling "100%." He states his sore throat has completely resolved. He is no longer dizzy-he has been up and walking. He states that his urination is now easy and his urine is clear. No issue with his bowel movements. Objective Active Medications: Acetaminophen (Tylenol Tab*) 650 mg PO Q4H PRN PRN Reason: PAIN Last Admin: 06/12/16 09:30 Dose: 650 mg Albuterol (Ventolin Hfa Inhaler*) 2 puff INH Q4H PRN PRN Reason: SOB/WHEEZING Last Admin: 06/13/16 09:20 Dose: 2 puff Atorvastatin Calcium (Lipitor*) 10 mg PO DAILY [facility] PRN Reason: Protocol Last Admin: 06/13/16 09:18 Dose: 10 mg Cyclobenzaprine HCl (Flexeril Tab*) 10 mg PO BID [facility] Last Admin: 06/13/16 09:19 Dose: 10 mg Heparin Sodium (Porcine) (Heparin Vial(*)) 5,000 units SUBCUT Q8HR [facility] Last Admin: 06/13/16 06:12 Dose: 5,000 units Sodium Chloride (Ns 0.9% 1000 Ml*) 1,000 mls @ 125 mls/hr IV PER RATE [facility] Last Admin: 06/13/16 06:11 Dose: 125 mls/hr Levofloxacin/Dextrose (Levaquin 500 Mg Ivpremix(*)) 500 mg in 100 mls @ 100 mls /hr IVPB ONCE ONE Stop: 06/13/16 13:26 Omeprazole (Prilosec Cap*) 20 mg PO DAILY [facility] Last Admin: 06/13/16 09:19 Dose: 20 mg Throat Lozenges (Chloraseptic Julita*) 1 julita PO Q6H PRN PRN Reason: SORE THROAT Last Admin: 06/12/16 07:10 Dose: 1 julita Vital Signs 06/12/16 06/12/16 06/12/16 13:36 15:38 19:29 Temperature 98.1 F Pulse Rate 84 81 Respiratory 16 14 16 Rate Blood Pressure 108/63 (mmHg) O2 Sat by Pulse 100 100 Oximetry 06/12/16 06/12/16 06/12/16 20:00 20:03 20:42 Temperature 98.2 F Pulse Rate 81 Respiratory 14 16 Rate Blood Pressure 114/66 (mmHg) O2 Sat by Pulse 100 100 Oximetry 06/12/16 06/12/16 06/13/16 22:42 23:15 04:19 Temperature 98.0 F 98.4 F Pulse Rate 87 78 Respiratory 16 16 16 Rate Blood Pressure 125/63 115/66 (mmHg) O2 Sat by Pulse 100 100 Oximetry 06/13/16 06/13/16 06/13/16 07:43 08:00 09:19 Temperature 98.5 F Pulse Rate 79 Respiratory 16 18 18 Rate Blood Pressure 132/74 (mmHg) O2 Sat by Pulse 100 100 Oximetry 06/13/16 11:19 Temperature 98.3 F Pulse Rate 81 Respiratory 16 Rate Blood Pressure 129/68 (mmHg) O2 Sat by Pulse 100 Oximetry Oxygen Devices in Use Now: None Appearance: Middle aged male sitting up eating lunch, NAD Eyes: No Scleral Icterus Ears/Nose/Mouth/Throat: Mucous Membranes Moist Respiratory: Symmetrical Chest Expansion and Respiratory Effort, Clear to Auscultation Cardiovascular: NL Sounds; No Murmurs; No JVD, RRR, No Edema Abdominal: NL Sounds; No Tenderness; No Distention Extremities: No Clubbing, Cyanosis Skin: No Rash or Ulcers, No Nodules or Sclerosis Neurological: Alert and Oriented x 3 Result Diagrams: 06/12/16 05:01 06/12/16 05:01 Additional Lab and Data: Lab Results 06/11/16 06/11/16 06/11/16 Range/Units 11:10 11:10 11:10 WBC 20.1 H (3.5-10.8) 10^3/ul RBC 5.16 (4.0-5.4) 10^6/ul Hgb 15.1 (14.0-18.0) g/dl Hct 44 (42-52) % MCV 86 (80-94) fL MCH 29 (27-31) pg MCHC 34 (31-36) g/dl RDW 15 (10.5-15) % Plt Count 498 H (150-450) 10^3/ul MPV 7 L (7.4-10.4) um3 Immature Gran % (Auto) 2 (0-9) % Neut % (Auto) 82.2 (38-83) % Lymph % (Auto) 7.6 L (25-47) % [place] % (Auto) 8.8 (1-9) % Eos % (Auto) 0.4 (0-6) % Baso % (Auto) 1.0 (0-2) % Absolute Neuts (auto) 16.5 H (1.5-7.7) 10^3/ul Absolute Lymphs (auto) 1.5 (1.0-4.8) 10^3/ul Absolute Monos (auto) 1.8 H (0-0.8) 10^3/ul Absolute Eos (auto) 0.1 (0-0.6) 10^3/ul Absolute Basos (auto) 0.2 (0-0.2) 10^3/ul Absolute Nucleated RBC 0 10^3/ul Neutrophils % 75 (38-83) % Lymphocytes % 8 L (25-47) % Monocytes % 13 (0-13) % Eosinophils % 1 (0-6) % Basophils % 1 (0-2) % Myelocytes % 2 H (0-1) % Nucleated RBC % 0 Normal RBC Morphology Not Reportable Tear Drop Cells 1+ INR (Anticoag Therapy) 1.21 H (0.89-1.11) APTT 32.5 (26.0-36.3) seconds Sodium 132 L (133-145) mmol/L Potassium 3.7 (3.5-5.0) mmol/L Chloride 98 L (101-111) mmol/L Carbon Dioxide 18 L (22-32) mmol/L Anion Gap 16 H (2-11) mmol/L BUN 74 H (6-24) mg/dL Creatinine 3.06 H (0.67-1.17) mg/dL Est GFR ( Amer) 26.6 (>60) Est GFR (Non-Af Amer) 20.7 (>60) BUN/Creatinine Ratio 24.2 H (8-20) Glucose 100 (70-100) mg/dL Lactic Acid (0.5-2.0) mmol/L Calcium 9.4 (8.6-10.3) mg/dL Total Bilirubin 1.40 H (0.2-1.0) mg/dL AST 40 H (13-39) U/L ALT 60 H (7-52) U/L Alkaline Phosphatase 175 H (34-104) U/L Total Creatine Kinase 80 (10-223) U/L Troponin I 0.07 H* (<0.04) ng/mL C-Reactive Protein 172.23 H (< 5.00) mg/L B-Natriuretic Peptide ( - 100) pg/mL Total Protein 8.3 (6.4-8.9) g/dL Albumin 3.8 (3.2-5.2) g/dL Globulin 4.5 H (2-4) g/dL Albumin/Globulin Ratio 0.8 L (1-3) Procalcitonin (<0.6) ng/mL Influenza A (Rapid) (Negative) Influenza B (Rapid) (Negative) Group A Strep Rapid (Negative) 06/11/16 06/11/16 06/11/16 Range/Units 11:10 11:10 11:10 WBC (3.5-10.8) 10^3/ul RBC (4.0-5.4) 10^6/ul Hgb (14.0-18.0) g/dl Hct (42-52) % MCV (80-94) fL MCH (27-31) pg MCHC (31-36) g/dl RDW (10.5-15) % Plt Count (150-450) 10^3/ul MPV (7.4-10.4) um3 Immature Gran % (Auto) (0-9) % Neut % (Auto) (38-83) % Lymph % (Auto) (25-47) % [place] % (Auto) (1-9) % Eos % (Auto) (0-6) % Baso % (Auto) (0-2) % Absolute Neuts (auto) (1.5-7.7) 10^3/ul Absolute Lymphs (auto) (1.0-4.8) 10^3/ul Absolute Monos (auto) (0-0.8) 10^3/ul Absolute Eos (auto) (0-0.6) 10^3/ul Absolute Basos (auto) (0-0.2) 10^3/ul Absolute Nucleated RBC 10^3/ul Neutrophils % (38-83) % Lymphocytes % (25-47) % Monocytes % (0-13) % Eosinophils % (0-6) % Basophils % (0-2) % Myelocytes % (0-1) % Nucleated RBC % Normal RBC Morphology Tear Drop Cells INR (Anticoag Therapy) (0.89-1.11) APTT (26.0-36.3) seconds Sodium (133-145) mmol/L Potassium (3.5-5.0) mmol/L Chloride (101-111) mmol/L Carbon Dioxide (22-32) mmol/L Anion Gap (2-11) mmol/L BUN (6-24) mg/dL Creatinine (0.67-1.17) mg/dL Est GFR ( Amer) (>60) Est GFR (Non-Af Amer) (>60) BUN/Creatinine Ratio (8-20) Glucose (70-100) mg/dL Lactic Acid 2.2 H* (0.5-2.0) mmol/L Calcium (8.6-10.3) mg/dL Total Bilirubin (0.2-1.0) mg/dL AST (13-39) U/L ALT (7-52) U/L Alkaline Phosphatase (34-104) U/L Total Creatine Kinase (10-223) U/L Troponin I (<0.04) ng/mL C-Reactive Protein (< 5.00) mg/L B-Natriuretic Peptide 65 ( - 100) pg/mL Total Protein (6.4-8.9) g/dL Albumin (3.2-5.2) g/dL Globulin (2-4) g/dL Albumin/Globulin Ratio (1-3) Procalcitonin 1.5 H (<0.6) ng/mL Influenza A (Rapid) (Negative) Influenza B (Rapid) (Negative) Group A Strep Rapid (Negative) 06/11/16 06/11/16 Range/Units 11:37 11:41 WBC (3.5-10.8) 10^3/ul RBC (4.0-5.4) 10^6/ul Hgb (14.0-18.0) g/dl Hct (42-52) % MCV (80-94) fL MCH (27-31) pg MCHC (31-36) g/dl RDW (10.5-15) % Plt Count (150-450) 10^3/ul MPV (7.4-10.4) um3 Immature Gran % (Auto) (0-9) % Neut % (Auto) (38-83) % Lymph % (Auto) (25-47) % [place] % (Auto) (1-9) % Eos % (Auto) (0-6) % Baso % (Auto) (0-2) % Absolute Neuts (auto) (1.5-7.7) 10^3/ul Absolute Lymphs (auto) (1.0-4.8) 10^3/ul Absolute Monos (auto) (0-0.8) 10^3/ul Absolute Eos (auto) (0-0.6) 10^3/ul Absolute Basos (auto) (0-0.2) 10^3/ul Absolute Nucleated RBC 10^3/ul Neutrophils % (38-83) % Lymphocytes % (25-47) % Monocytes % (0-13) % Eosinophils % (0-6) % Basophils % (0-2) % Myelocytes % (0-1) % Nucleated RBC % Normal RBC Morphology Tear Drop Cells INR (Anticoag Therapy) (0.89-1.11) APTT (26.0-36.3) seconds Sodium (133-145) mmol/L Potassium (3.5-5.0) mmol/L Chloride (101-111) mmol/L Carbon Dioxide (22-32) mmol/L Anion Gap (2-11) mmol/L BUN (6-24) mg/dL Creatinine (0.67-1.17) mg/dL Est GFR ( Amer) (>60) Est GFR (Non-Af Amer) (>60) BUN/Creatinine Ratio (8-20) Glucose (70-100) mg/dL Lactic Acid (0.5-2.0) mmol/L Calcium (8.6-10.3) mg/dL Total Bilirubin (0.2-1.0) mg/dL AST (13-39) U/L ALT (7-52) U/L Alkaline Phosphatase (34-104) U/L Total Creatine Kinase (10-223) U/L Troponin I (<0.04) ng/mL C-Reactive Protein (< 5.00) mg/L B-Natriuretic Peptide ( - 100) pg/mL Total Protein (6.4-8.9) g/dL Albumin (3.2-5.2) g/dL Globulin (2-4) g/dL Albumin/Globulin Ratio (1-3) Procalcitonin (<0.6) ng/mL Influenza A (Rapid) Negative (Negative) Influenza B (Rapid) Negative (Negative) Group A Strep Rapid Negative (Negative) Microbiology and Other Data: Microbiology 06/11/16 21:00 Urine Culture - Final Urine Assess/Plan/Problems-Billing Mr Cottrell is a 66 yo M who has a h/o HTN, HLD and asthma who presented to the ER with c/o sore throat and dizziness and was found to be hypotensive and septic secondary to unclear cause. - Patient Problems (1) Sepsis Current Visit: Yes Status: Acute Comment: Sepsis has resolved. Sepsis was secondary to probable UTI and bacteremia. 1 of 4 Blood culture bottles from admission positive for E coli. (2) UTI (urinary tract infection) Current Visit: Yes Status: Acute Comment: Urine culture was negative however 1 of 4 blood culture bottles from admission was positive for E coli. Will continue levaquin-dose is needed today. I suspect his renal function will be even better today but will continue to renally dose the levaquin. (3) Acute renal failure Current Visit: Yes Status: Acute Comment: Creatinine is pending. (4) Elevated LFTs Current Visit: Yes Status: Acute Code(s): R94.5 - ABNORMAL RESULTS OF LIVER FUNCTION STUDIES SNOMED Code(s): 543379732 Comment: Follow up LFTs today. (5) Sore throat Current Visit: Yes Status: Acute Code(s): J02.9 - ACUTE PHARYNGITIS, UNSPECIFIED SNOMED Code(s): 332740902 Comment: Resolved. (6) Elevated troponin Current Visit: Yes Status: Acute Code(s): R79.89 - OTHER SPECIFIED ABNORMAL FINDINGS OF BLOOD CHEMISTRY SNOMED Code(s): 967615467 Comment: Likely demand ischemia. Second troponin was negative. No further work up at this time. (7) HTN (hypertension) Current Visit: Yes Status: Acute Code(s): I10 - ESSENTIAL (PRIMARY) HYPERTENSION SNOMED Code(s): 07228101 Comment: BP improved. Will need to have close follow up as an outpatient with the addition of his home medications. (8) HLD (hyperlipidemia) Current Visit: Yes Status: Acute Code(s): E78.5 - HYPERLIPIDEMIA, UNSPECIFIED SNOMED Code(s): 33770060 Comment: Continue lipitor. (9) DVT prophylaxis Current Visit: Yes Status: Acute Code(s): [id number] - SNOMED Code(s): 212195831 Comment: SQ heparin (10) Full code status Current Visit: Yes Status: Acute Code(s): Z78.9 - OTHER SPECIFIED HEALTH STATUS SNOMED Code(s): 804177077
--- NOTE | 2016-06-13 13:48 | RAD ---
Indication: Hydronephrosis. Real-time sonography of the kidneys was performed. The right kidney measures 12.1 x 7.0 x 6.7 cm. No hydronephrosis is noted. The left kidney measures 13.5 x 6.5 x 5.0 cm. Lobulated contour is noted. No hydronephrosis is noted. Extrarenal pelvis is noted. When compared to previous exam of March 09, 2016 no significant change is noted. IMPRESSION: NO HYDRONEPHROSIS OF EITHER KIDNEY IS NOTED.
[2016-06-13 14:36] LABS: Hematocrit 38 % (42-52); Hemoglobin 12.7 g/dl (14.0-18.0); Mean Corpuscular HGB Conc 33 g/dl (31-36); Mean Corpuscular Hemoglobin 29 pg (27-31); Mean Corpuscular Volume 88 fL (80-94); Mean Platelet Volume 7 um3 (7.4-10.4); Red Blood Count 4.36 10^6/ul (4.0-5.4); Red Cell Distribution Width 15 % (10.5-15); White Blood Count 7.7 10^3/ul (3.5-10.8)
[2016-06-13 14:53] LABS: BUN/Creatinine Ratio 18.5 (8-20); Calcium 8.5 mg/dL (8.6-10.3); Direct Bilirubin 0.3 mg/dL (0.03-0.18); EGFR African American 68.4 (>60); EGFR Non-African American 53.2 (>60); Globulin 3.4 g/dL (2-4); Indirect Bilirubin 0.2 mg/dL (0.3-1.0); Total Bilirubin 0.5 mg/dL (0.2-1.0); Total Protein 6.4 g/dL (6.4-8.9)
--- NOTE | 2016-06-14 09:04 | DS ---
DISCHARGE SUMMARY: DATE OF ADMISSION: 06/11/16 DATE OF DISCHARGE: 06/13/16 PRIMARY CARE PROVIDER: MAN Garcia, and to be established locally. PRINCIPAL DIAGNOSIS: E. coli UTI versus prostatitis with bacteremia. SECONDARY DIAGNOSES: 1. Acute renal failure - resolved. 2. Hypotension - resolved. 3. Elevated LFTs - unclear etiology, but stable. 4. Elevated troponin - demand ischemia. 5. Hypertension. 6. Hyperlipidemia. DISCHARGE MEDICATIONS: 1. Mometasone one puff inhaled daily. 2. Cyclobenzaprine 10 mg p.o. b.i.d. 3. Flonase one squirt to both nostrils twice daily. 4. Albuterol two puffs inhaled q.4 hours p.r.n. shortness of breath. 5. Crestor 10 mg p.o. daily. 6. Loratadine 10 mg p.o. daily p.r.n. allergies. 7. Omeprazole 20 mg p.o. daily. 8. Lisinopril 20 mg p.o. daily. 9. Hydrochlorothiazide 25 mg p.o. daily to be held until seen by PCP. 10. Levaquin 500 mg p.o. daily x18 days. HOSPITAL COURSE: Mr. Cottrell is a 66-year-old male who presented to the emergency room on 06/11/16 with complaints of sore throat and dizziness. The patient was found to be in acute renal failure and markedly hypotensive. The patient was felt to be septic, but initially from an unclear source. Ultimately , the patient's urinalysis came back markedly abnormal, suspicious for a UTI. The patient was treated with Levaquin, renally dosed for presumed urinary tract infection. The patient's urine culture ultimately returned negative. However, he did receive antibiotics prior to the urine specimen being obtained. The patient also described urinary symptoms where he felt difficulty initiating the stream of urine. Prostatitis is felt to be a possibility and, therefore, the patient will be treated for a total of 21 days. Of note, the patient's blood culture from admission, 1 of 4 bottles, came back positive for E. Coli. My suspicion is that the patient is septic secondary to an E. Coli urinary tract infection versus prostatitis and bacteremia. At this point, the patient is much improved. He was hypotensive on admission, though this has now resolved. Additionally, the patient was in acute renal failure with a creatinine of 3.06. This, too, resolved and his creatinine is down to 1.35 on the day of discharge. Of note, the patient's LFTs were mildly elevated on admission and remained relatively stable on the day of discharge. The etiology behind his elevated LFTs is not completely clear. The patient has no abdominal complaints whatsoever; therefore, abdominal imaging was not performed. The patient should have a follow up CMP on 06/16/16. If his LFTs remain elevated, he will likely need a liver ultrasound. The patient's case was then discussed with Dr. Sorensen who will see him in consultation as an outpatient. At this time, the patient is feeling quite well and ready for discharge home. FOLLOWUP CONCERNS: The patient is being discharged home today, 06/13/16. He is to either establish with new primary care provider or follow up with his usual primary care provider in the next 4 to 7 days. ACTIVITY: Activity level is as tolerated. DIET: Low fat. CONDITION ON DISCHARGE: Stable. TIME SPENT: Thirty-five minutes were spent discharging this patient. CC: Dr. Sorensen; MAN Garcia * [id number]/[id number] #: [id number] MTDD
== END 2016-06-13 16:10 | disposition home or self-care (01) | DRG 720 ==
LOC: ED 10:46 → MEDTELE 12:54
PROVIDERS: ADMIT Hospitalist; ATTEND Hospitalist
DX: A41.9 Sepsis, unspecified organism (principal); N17.9 Acute kidney failure, unspecified; I95.9 Hypotension, unspecified; N39.0 Urinary tract infection, site not specified; R65.20 Severe sepsis without septic shock; B96.20 Unspecified Escherichia coli [E. coli] as the cause of diseases classified elsewhere; J02.9 Acute pharyngitis, unspecified; R74.8 Abnormal levels of other serum enzymes; N41.9 Inflammatory disease of prostate, unspecified; B96.89 Other specified bacterial agents as the cause of diseases classified elsewhere; R94.5 Abnormal results of liver function studies; I10 Essential (primary) hypertension; E78.5 Hyperlipidemia, unspecified; J45.909 Unspecified asthma, uncomplicated; Z79.899 Other long term (current) drug therapy; Z91.030 Bee allergy status; Z91.041 Radiographic dye allergy status; Z82.49 Family history of ischemic heart disease and other diseases of the circulatory system; Z80.49 Family history of malignant neoplasm of other genital organs
CPT/HCPCS: 36415; 71010; 76775; 80048; 80053; 80076; 81003; 81015; 82550; 82570; 83605; 83880; 84145; 84300; 84484; 85025; 85027; 85610; 85730; 86140; 87040; 87077; 87086; 87186; 87502; 87651; 93005; 94640; A9270-GY; J0696; J1644; J1956

== ENCOUNTER 2018-01-30 12:41 | Emergency (ER) | payer MEDICARE, OTHER ==
[2018-01-30 13:01] VITALS: BP 121/78
--- NOTE | 2018-01-30 13:30 | UC ---
Respiratory Complaint HPI - HPI Summary HPI Summary: This patient is a 67 year old MF presenting to [facility] with a chief complaint of productive cough with clear to yellow sputum progressive over the last two weeks. The patient states with coughing has some right sided rib pain. Symptoms alleviated by inhaler and at home neb but comes back. Pt has use his MDI and OTC tussin with little improvement. no fever, no chills. decreased appetite.. Pt states called PCP today at [facility] - unable to get appt so came here. Pt states has both MDI and nebulizer. . Patient reports throat irritation from secretions , trouble taking a deep breath, chest congestion. Patient denies n/v/d, ABD pain, ear pain, and wheezing. Pt states he just saw the [facility] for a routine check- up and blood work was normal. They also recommended OTC medication for his cough and was told to come to the doctor if it got worse. No h/o CHF + Asthma Patients medications reviewed this visit. - History of Current Complaint Chief Complaint: UCGeneralIllness Stated Complaint: SORE THROAT CONGESTION Time Seen by Provider: 01/30/18 13:22 Hx Obtained From: Patient Onset/Duration: Lasting Weeks - 2, Still Present Timing: Constant Severity Initially: Moderate Severity Currently: Moderate Pain Intensity: 0 Pain Scale Used: 0-10 Numeric Character: Cough: Productive Associated Signs And Symptoms: Positive: Negative - fever - Allergies/Home Medications Allergies/Adverse Reactions: Allergies Allergy/AdvReac Type Severity Reaction Status Date / Time Iodinated Contrast- Oral and Allergy Severe Hives/Diff. Verified 01/30/18 12:51 IV Dye Breathing/I tching bee venom protein (honey bee) Allergy Anaphylatic Verified 01/30/18 12:51 Shock Xray dye Allergy Severe Swelling Uncoded 02/08/15 11:06 Home Medications: Home Medications Dextromethorphan HBr [Tussin Cough] 15 mg PO ONCE 01/30/18 [History Confirmed ] PMH/Surg Hx/FS Hx/Imm Hx Previously Healthy: Yes Cardiovascular History: Hypertension, Other Other Cardiovascular History: HLD Respiratory History: Asthma Other History Of: Negative For: Hepatitis C - Surgical History Surgical History: Yes Surgery Procedure, Year, and Place: 1971 - Right knee surgery. appendectomy - when a child. Lower left ankle, 3 pins - Family History Known Family History: Positive: Cardiac Disease, Hypertension - Social History Alcohol Use: None Substance Use Type: None Smoking Status (MU): Former Smoker Type: Cigarettes Have You Smoked in the Last Year: No When Did the Patient Quit Smoking/Using Tobacco: 1969 - Immunization History Most Recent Influenza Vaccination: fall 2015 Most Recent Tetanus Shot: utd Most Recent Pneumonia Vaccination: never Review of Systems Constitutional: Fatigue ENT: Sore Throat Respiratory: Cough, Other - trouble taking a deep breath starts coughing Cardiovascular: Negative All Other Systems Reviewed And Are Negative: Yes Physical Exam - Summary Physical Exam Summary: Vital Signs Reviewed: Yes A+Ox3, no distress Eyes: Conjunctiva Clear, GEOVANNY. EOM intact and full ENT: Hearing grossly normal TM x 2 clear, mmoist, uvula midline, no exudate, no erythema Neck: Positive: Supple Respiratory: Positive: coarse cough, scattered wheeze no retraction, cough interrupted with cough. Cardiovascular: RRR nl s1, s2 no m/r CBT <2 sec abd soft + BS nt/nd no guarding, no distension Musculoskeletal Exam: OLIVEIRA x 4 without difficulty Strength Intact, ROM Intact Neurological: Positive: Alert, + sensation throughout Psychological: Positive: Normal Response To Family Skin: Positive: no rash, no ecchymosis Triage Information Reviewed: Yes Vital Signs: Initial Vital Signs Temp 98 F 01/30/18 12:54 Pulse 90 01/30/18 12:54 Resp 22 01/30/18 12:54 BP 121/78 01/30/18 12:54 Pulse Ox 95 01/30/18 12:54 UC Diagnostic Evaluation - Laboratory O2 Sat by Pulse Oximetry: 95 - Radiology Radiology Interpretation Completed By: Radiologist - 1. THERE HAS BEEN INTERVAL DEVELOPMENT OF SUBPLEURAL FIBROTIC CHANGES THROUGHOUT BOTH LUNGS. 2. THERE IS PATCHY AIRSPACE DISEASE OF THE RIGHT LOWER LUNG 3. RECOMMEND FOLLOW- UP UNTIL RESOLUTION TO EXCLUDE UNDERLYING PULMONARY PARENCHYMAL PATHOLOGY. Dr Fitzgerald has reviewed this report. Re-Evaluation - Re-Evaluation First Eval Re-Evaluation Time: 14:33 Change: Improved Comment: Pt states feels better following nebulizer. Pt wheezing resolved. reviewed CXR with pt. recommend neb Q4ht. pred. abx. streict return precaution. Pt comfortable and in agreement with plan Respiratory Course/Dx - Course Course Of Treatment: Pt presents with 2 weeks progressive cough, sob and wheeze. Pt with productive sputum. no fevers, fatigue. On exam, pt with coarse cough and scattered wheeze. Will check CXR. duoneb and reassess. likely abx, pred - Differential Dx/Diagnosis Provider Diagnoses: PNA Discharge - Sign-Out/Discharge Documenting (check all that apply): Patient Departure All imaging exams completed and their final reports reviewed: Yes - Discharge Plan Condition: Stable Disposition: HOME Prescriptions: Amoxicillin/Clavulanate TAB* [Augmentin TAB 875*] 875 mg PO BID #20 tab predniSONE TAB* [Deltasone TAB*] 50 mg PO DAILY #5 tab Patient Education Materials: Community Acquired Pneumonia (ED) Referrals: Jessica Dodge [Primary Care Provider] - Additional Instructions: - Taking antibiotics exactly as prescribed until gone - Stay well-hydrated. Drink plenty of nonalcoholic, non-caffeinated beverages - Take prednisone as prescribed until gone - Usual nebulizer every 4 hours today and tomorrow. Then use every 4 hours as needed - Contact today to schedule follow-up appointment later this week. If your breathing gets worse, you have uncontrolled fevers, your short of breath, or you have any concerns is recommended equally emergency department for further evaluation and treatment. - Billing Disposition and Condition Condition: STABLE Disposition: Home - Attestation Statements Document Initiated by Scribe: Yes Documenting Scribe: Jordan Calles Provider For Whom Reid is Documenting (Include Credential): Briseida Fitzgerald MD Scribe Attestation: Jordan Sorensen , scribed for Briseida Fitzgerald MD on 01/30/18 at 2021. Scribe Documentation Reviewed: Yes Provider Attestation: The documentation as recorded by the Jordan shrestha accurately reflects the service I personally performed and the decisions made by me, Briseida Fitzgerald MD
[2018-01-30] MEDS ORDERED: Albuterol/Ipratropium NEB.SOL* Albuterol 2.5 MG/Ipratropium 0.5 MG 3 ML INH ONE (13:32)
--- NOTE | 2018-01-30 14:02 | RAD ---
HISTORY: cough, sputum COMPARISONS: June 11, 2016 VIEWS: 4: Frontal dual-energy and lateral views of the chest. FINDINGS: CARDIOMEDIASTINAL SILHOUETTE: The cardiomediastinal silhouette is normal. ZOE: The zoe are normal. PLEURA: The costophrenic angles are sharp. No pleural abnormalities are noted. LUNG PARENCHYMA: There is a pattern of coarse reticular opacification probably within the periphery of both lungs with more focal alveolar opacification within the right middle lobe. ABDOMEN: The upper abdomen is clear. There is no subphrenic gas. BONES AND SOFT TISSUES: No bone or soft tissue abnormalities are noted. OTHER: None. IMPRESSION: 1. THERE HAS BEEN INTERVAL DEVELOPMENT OF SUBPLEURAL FIBROTIC CHANGES THROUGHOUT BOTH LUNGS. 2. THERE IS PATCHY AIRSPACE DISEASE OF THE RIGHT LOWER LUNG 3. RECOMMEND FOLLOW-UP UNTIL RESOLUTION TO EXCLUDE UNDERLYING PULMONARY PARENCHYMAL PATHOLOGY.
== END 2018-01-30 14:44 | disposition home or self-care (01) ==
LOC: UCEAST 12:41
DX: J18.9 Pneumonia, unspecified organism (principal); Z87.891 Personal history of nicotine dependence; Z91.041 Radiographic dye allergy status
CPT/HCPCS: 71046; 99202; A9270-GY; G0463

== ENCOUNTER 2018-02-07 09:04 | Emergency (ER) | payer MEDICARE ==
[2018-02-07 09:20] VITALS: BP 104/69
--- NOTE | 2018-02-07 09:31 | UC ---
Cardiac HPI - HPI Summary HPI Summary: This pt is a 67 y/o male presenting to [facility] c/o right sided chest pain since . Pt reports he was seen in Urgent Care on 01/30 and was diagnosed with pneumonia for which he was given Augmentin. He states that he still has right sided chest pain that is described as sharp and pleuritic, worse with deep inspirations. Pt additionally notes he is SOB, especially on exertion, and has a productive cough that has improved since last week. Pt still has 2 days left of Augmentin. - History of Current Complaint Chief Complaint: UCRespiratory Stated Complaint: PAIN WITH INSPIRATION Hx Obtained From: Patient Onset/Duration: Lasting Days, Still Present Timing: Constant Current Severity: Moderate Pain Intensity: 8 Chest Pain Location: Right Anterior Character: Sharp/Stabbing - sharp Aggravating Factor(s): Deep Breaths Alleviating Factor(s): Nothing Associated Signs & Symptoms: Positive: Chest Pain, SOB, Cough. Negative: Fever , Diaphoresis, Nausea/Vomiting, Palpitations - Allergy/Home Medications Allergies/Adverse Reactions: Allergies Allergy/AdvReac Type Severity Reaction Status Date / Time Iodinated Contrast- Oral and Allergy Severe Hives/Diff. Verified 02/07/18 09:20 IV Dye Breathing/I tching bee venom protein (honey bee) Allergy Anaphylatic Verified 02/07/18 09:20 Shock Xray dye Allergy Severe Swelling Uncoded 02/07/18 09:20 PMH/Surg Hx/FS Hx/Imm Hx Cardiovascular History: Hypertension, Other Other Cardiovascular History: HLD Respiratory History: Asthma, Pneumonia Other History Of: Negative For: Hepatitis C - Surgical History Surgical History: Yes Surgery Procedure, Year, and Place: 1971 - Right knee surgery. appendectomy - when a child. Lower left ankle, 3 pins - Family History Known Family History: Positive: Cardiac Disease, Hypertension - Social History Alcohol Use: None Substance Use Type: None Smoking Status (MU): Former Smoker Type: Cigarettes Have You Smoked in the Last Year: No When Did the Patient Quit Smoking/Using Tobacco: 1969 - Immunization History Most Recent Influenza Vaccination: fall 2015 Most Recent Tetanus Shot: utd Most Recent Pneumonia Vaccination: never Review of Systems Constitutional: Negative Skin: Negative Eyes: Negative ENT: Negative Respiratory: Shortness Of Breath, Cough Cardiovascular: Chest Pain Gastrointestinal: Negative Genitourinary: Negative Motor: Negative Neurovascular: Negative Musculoskeletal: Negative Neurological: Negative Psychological: Negative All Other Systems Reviewed And Are Negative: Yes Physical Exam - Summary Physical Exam Summary: VITAL SIGNS: Reviewed. GENERAL: Patient is a well-developed and nourished male who is lying comfortable in the stretcher. Patient is not in any acute respiratory distress. HEAD AND FACE: Normocephalic EYES: PERRLA, EOMI x 2. EARS: Hearing grossly intact. MOUTH: Oropharynx within normal limits. NECK: Supple, trachea is midline, no adenopathy, no JVD, no carotid bruit. CHEST: Symmetric, no tenderness at palpation LUNGS: Clear to auscultation bilaterally. No wheezing or crackles. CVS: Regular rate and rhythm, S1 and S2 present, no murmurs or gallops appreciated. ABDOMEN: Soft, non-tender. Bowel sounds are normal. No abdominal abnormal pulsations. EXTREMITIES: Full ROM in all major joints, no edema, no cyanosis or clubbing. NEURO: Alert and oriented x 3. No acute neurological deficits. Speech is normal and follows commands. SKIN: Dry and warm Triage Information Reviewed: Yes Vital Signs: Initial Vital Signs Temp 97.9 F 02/07/18 09:15 Pulse 79 02/07/18 09:15 Resp 20 02/07/18 09:15 BP 104/69 02/07/18 09:15 Pulse Ox 98 02/07/18 09:15 Vital Signs Reviewed: Yes Diagnostics - Radiology Chest XR Xray Interpretation: No Acute Changes - IMPRESSION: The constellation of findings suggests bronchopneumonia with mild interval improvement. If this is discordant with the clinical presentation/clinical course then consider chest CT to further assess the pattern of interstitial disease. Dr. Mcarthur has reviewed this report. Radiology Interpretation Completed By: Radiologist - Assessment/Plan Course Of Treatment: Pt is a 67 y/o male presenting to [facility] c/o right sided chest pain since 01/30/18. Pt reports he was seen in Urgent Care on 01/30 and was diagnosed with pneumonia for which he was given Augmentin. He states that he still has right sided chest pain that is described as sharp and pleuritic, worse with deep inspirations. Pt additionally notes he is SOB, especially on exertion, and has a productive cough that has improved since last week. This patient continues to have productive cough with yellowish greenish phlegm, he continues to have shortness of breath especially on slight exertion. Chest XR shows the constellation of findings suggests bronchopneumonia with mild interval improvement. The patient might have a pulmonary embolus and needs to go to the emergency room to rule this out. At this time I asked the patient to go to the emergency room however the patient refuses. I explained to the patient the risk and benefits of going to the emergency room to rule out pulmonary emboli however the patient still refuses. He requested to get another antibiotic and likely he will go to the ED this afternoon. The patient at this time is hemodynamically stable alert and oriented 3. The patient understands the risk of if the patient doesn't go to the emergency department to rule out pulmonary embolus. The patient understands and agrees. Patient reports that he will go to the ER. Patient declined ambulance transport. - Clinical Impression Provider Diagnoses: Pneumonia Discharge - Sign-Out/Discharge Documenting (check all that apply): Patient Departure - Discharge with recommendation to go to the ED All imaging exams completed and their final reports reviewed: Yes - Discharge Plan Condition: Stable Disposition: HOME-RECOMMEND TO ED Prescriptions: Levofloxacin TAB* [Levaquin TAB*] 750 mg PO DAILY #7 tab Patient Education Materials: Pneumonia (ED) Referrals: Jessica Dodge [Primary Care Provider] - Additional Instructions: Take medications as instructed and adhere to plan Take Acetaminophen or ibuprofen for pain or fever Increase your fluid intake Return to the or go to the emergency department if symptoms worsen Follow-up with primary care physician in next 2-3 days - Billing Disposition and Condition Condition: STABLE Disposition: Home-Recommend to ED - Attestation Statements Document Initiated by Reid: Yes Documenting Scribe: Luanne Rosas Provider For Whom Reid is Documenting (Include Credential): Alexander Mcarthur MD Scribe Attestation: Luanne Sorensen, scribed for Alexander Mcarthur MD on 02/07/18 at 1415. Scribe Documentation Reviewed: Yes Provider Attestation: The documentation as recorded by the Luanne shrestha accurately reflects the service I personally performed and the decisions made by me, Alexander Mcarthur MD
--- NOTE | 2018-02-07 10:06 | RAD ---
INDICATION: Shortness of breath and chest pain. One week pneumonia RIGHT lung. COMPARISON: January 30, 2018 chest radiograph and January 26, 2017 CT abdomen which includes the lung bases. TECHNIQUE: Dual energy PA and routine lateral views of the chest were obtained. REPORT: Bilateral mid to lower lung zone alveolar opacities and more diffuse interstitial opacities with mild interval improvement compared with the January 30, 2018 exam. These findings are new compared with the January 26, [address] favoring bronchopneumonia or more atypical interstitial lung disease which has developed since the prior CT. Negative for pleural effusions or pneumothorax. Negative for cardiomegaly. Unremarkable central pulmonary vasculature and mediastinal contours. IMPRESSION: #. The constellation of findings suggests bronchopneumonia with mild interval improvement. If this is discordant with the clinical presentation/clinical course then consider chest CT to further assess the pattern of interstitial disease.
== END 2018-02-07 10:02 | disposition home health service (06) ==
LOC: UCEAST 09:04
DX: J18.9 Pneumonia, unspecified organism (principal); Z91.030 Bee allergy status; Z91.041 Radiographic dye allergy status; Z87.891 Personal history of nicotine dependence
CPT/HCPCS: 71046; 99212; G0463